=== PATIENT | female | born 1965 | race African-American/Black ===

== ENCOUNTER 2019-01-25 06:12 | Day surgery (SDC) | payer MEDICAID ==
[~2019-01-25] VITALS: Ht 162.6 cm; Wt 100.7 kg
[~2019-01-25 06:12] MED LIST: ESCI20TA51 PO; HYDR25TA4 PO; LURA40TA PO; METF-370 PO
[2019-01-25] MEDS ORDERED: ceFAZolin 1GM/50ML 50 ML IV ONE (07:03)
[2019-01-25] MEDS ORDERED: BUPIVACAINE 0.25% INJ 50ML VIAL ONE (07:21)
[2019-01-25] MEDS ORDERED: SUCCINYLCHOLINE CHLORIDE 20 MG/ML 10ML VIAL IV ONE (10:52)
[2019-01-25] MEDS ORDERED: LIDOCAINE 1% (LOCAL ANESTH.) PF 5ml SDV ONE (10:52)
[2019-01-25] MEDS ORDERED: MIDAZOLAM HCL 1MG/1ML-2 ML VIAL ONE (10:55)
[2019-01-25] MEDS ORDERED: ETOMIDATE (2MG/ML) 20ML VIAL IV ONE (10:56)
[2019-01-25] MEDS ORDERED: ROCURONIUM 10MG/ML 10ML VIAL IV ONE (10:56)
[2019-01-25] MEDS ORDERED: METOCLOPRAMIDE HCL 5MG/ml INJ 2ml VIAL ONE (10:58)
[2019-01-25] MEDS ORDERED: fentaNYL CITRATE 100 MCG/2 ML VL ONE (11:09)
[2019-01-25] MEDS ORDERED: GLYCOPYRROLATE 0.2 MG/ML 1ML VIAL ONE (11:21)
[2019-01-25] MEDS ORDERED: NEOSTIGMINE 1 MG/ML INJ (10mg/10ML VIAL) ONE (11:21)
[2019-01-25] MEDS ORDERED: ACCU-CHEK COMFORT CURVE STRIP VI ONE (11:30)
[2019-01-25] MEDS ORDERED: HYDROmorphone HCL 2 MG/ML VL IV PRN ×2 (11:30)
[2019-01-25] MEDS ORDERED: NALOXONE HCL 0.4 MG/ML VIAL IV PRN (11:30)
[2019-01-25] MEDS ORDERED: ONDANSETRON HCL 4 MG/2 ML VIAL IV PRN (11:30)
[2019-01-25] MEDS ORDERED: ALBUTEROL SULF 2.5 MG/0.5ML(0.5%) NEB SOLN NEB ONE (11:45)
[2019-01-25] MEDS ORDERED: ALBUTEROL SULF 2.5 MG/0.5ML(0.5%) NEB SOLN ONE (11:45)
[2019-01-25] MEDS ORDERED: IPRATROPIUM BROM 0.5 MG/2.5ML INH SOL ONE (11:45)
[2019-01-25] MEDS ORDERED: IPRATROPIUM BROM 0.5 MG/2.5ML INH SOL NEB ONE (11:45)
--- NOTE | 2019-01-25 11:55 | NUR ---
MN GIVEN WITH 2.5MG ALBUTEROL AND 0.5 MG ATROVENT VIA AEROSOL MASK. PT IS AWAKE, ALERT AND ORIENTED. HR 88 BPM, RR24 BPM, BS ARE DIMINISHED TO AUSCULTATION. SKIN IS DRY AND WARM TO THE TOUCH. PT TOLERATING WELL. NO ACUTE DISTRESS NOTED.
== END 2019-01-25 12:32 | disposition home or self-care (01) ==
LOC: SUR 06:12
PROVIDERS: ATTEND Orthopaedic Surgery Adult Reconstructive Orthopaedic Surgery
DX: G56.02 Carpal tunnel syndrome, left upper limb (principal); E78.00 Pure hypercholesterolemia, unspecified; I25.10 Atherosclerotic heart disease of native coronary artery without angina pectoris; E11.9 Type 2 diabetes mellitus without complications; K21.9 Gastro-esophageal reflux disease without esophagitis; M19.90 Unspecified osteoarthritis, unspecified site; E66.9 Obesity, unspecified; I25.2 Old myocardial infarction; F32.9 Major depressive disorder, single episode, unspecified; Z88.8 Allergy status to other drugs, medicaments and biological substances; Z79.84 Long term (current) use of oral hypoglycemic drugs; Z79.899 Other long term (current) drug therapy; Z87.891 Personal history of nicotine dependence; Z90.49 Acquired absence of other specified parts of digestive tract; Z90.710 Acquired absence of both cervix and uterus; Z98.890 Other specified postprocedural states; Z68.39 Body mass index [BMI] 39.0-39.9, adult
CPT/HCPCS: 29848; 82962; 94640; J0330; J0690; J2250; J2765; J3010; J3490; J7611; J7644